=== PATIENT | female | born 1990 | race American Indian/Alaskan Native ===

== ENCOUNTER 2021-08-07 16:40 | Outpatient (CLI) | payer OTHER ==
[2021-08-07 18:11] VITALS: BP 114/66
[2021-08-07] MEDS ORDERED: LACTATED RINGERS 1,000 ML IV ONE (18:42)
[2021-08-07 19:09] LABS: Bilirubin,Urine NEG (Negative); Blood,Urine NEG (Negative); Color,Urine Yellow (Yellow); Protein,Urine <15 mg/dL mg/dL (Negative); RBC,Urine < 1.0 /HPF (0.0-6.0); Urobilinogen,Urine < 2.0 mg/dL (<2.0)
[2021-08-07] MEDS ORDERED: ACETAMINOPHEN 500 MG TAB PO ONE (20:00)
--- NOTE | 2021-08-07 22:49 | Ultrasound Report ---
ULTRASOUND OBSTETRIC LIMITED ULTRASOUND BIOPHYSICAL PROFILE INDICATION / CLINICAL INFORMATION: BPP DA. Clinical Gestational Age (GA) in weeks, days: 30, 2 TECHNIQUE: Transabdominal. COMPARISON: None available. FINDINGS: BREATHING MOVEMENT = 2 GROSS BODY MOVEMENT = 2 TONE = 2 QUALITATIVE AMNIOTIC FLUID VOLUME = 2 TOTAL BIOPHYSICAL SCORE = 8/8 HEART RATE (beats per minute): 141 AMNIOTIC FLUID INDEX (cm) = 10.2 (normal = 7-24 cm) PRESENTATION: Cephalic. ADDITIONAL FINDINGS: None. IMPRESSION: 1. Biophysical Score = 8/8 Signer Name: Rafiq Dominguez DO Signed: 08/07/2021 10:44 PM Workstation Name: [id number]
== END 2021-08-07 22:45 | disposition home or self-care (01) ==
LOC: TRG 16:40 → APU 16:42 → TRG 22:45
PROVIDERS: ATTEND Obstetrics & Gynecology
DX: O62.9 Abnormality of forces of labor, unspecified (principal); O26.893 Other specified pregnancy related conditions, third trimester; R19.7 Diarrhea, unspecified; M54.9 Dorsalgia, unspecified; Z3A.30 30 weeks gestation of pregnancy
CPT/HCPCS: 59025; 76815; 76819; 81001; 96360; J7120

== ENCOUNTER 2021-08-20 09:36 | Outpatient (CLI) | payer OTHER ==
[2021-08-20 10:39] VITALS: BP 108/60
[2021-08-20] MEDS ORDERED: LACTATED RINGERS 500 ML IV ONE (10:39)
[2021-08-20] MEDS ORDERED: TERBUTALINE 1 MG/1 ML INJ SUB-Q SCH (11:00)
[2021-08-20] MEDS ORDERED: LACTATED RINGERS 1,000 ML IV SCH (11:00)
[2021-08-20 12:58] LABS: Bilirubin,Urine NEG (Negative); Blood,Urine NEG (Negative); Color,Urine Yellow (Yellow); Mucus,Urine FEW /HPF; Urobilinogen,Urine < 2.0 mg/dL (<2.0)
== END 2021-08-20 14:55 | disposition home or self-care (01) ==
LOC: TRG 09:36 → APU 09:37 → TRG 14:55
PROVIDERS: ATTEND Obstetrics & Gynecology
DX: O62.9 Abnormality of forces of labor, unspecified (principal); O26.893 Other specified pregnancy related conditions, third trimester; R10.2 Pelvic and perineal pain; M54.9 Dorsalgia, unspecified; Z3A.32 32 weeks gestation of pregnancy
CPT/HCPCS: 36415; 59025; 81001; 82731; 96372; J3105; J7120; 96360; 96361